=== PATIENT | female | born 1970 | race Caucasian/White ===

== ENCOUNTER 2024-03-21 13:06 | Outpatient (AMB) | payer OTHER, SELFPAY ==
--- NOTE | 2024-03-21 13:13 | MHC.PC.OV ---
Vital Signs 03/21/24 13:29 Height 5 ft 0.63 in Weight 113 lb 4 oz BMI 21.7 BP 126/70 Blood Pressure Location Rt brachial Position Sitting Respiration 14 Pulse 62 Pulse Source Pulse Oximeter Pulse Oximetry (%) 99 Oxygen Delivery Method Room Air Intake Visit Reasons: ZAID from [facility] Intake Note: New patient visit Allergies pineapple Allergy (Mild, Verified 03/21/24 13:21) hives strawberry Allergy (Unknown, Verified 03/21/24 13:13) Unknown Tobacco use date assessed: 03/21/24 Dental Screening Dental Screen Date: 03/21/24 Did you have a dental visit in the last 12 months?: Yes Did you have a dental problem in the last 6 months where you did not have access to dental care?: No Was dental information given to patient?: Patient has dentist HPI HPI Comments History of Present Illness Details The patient is a 53-year-old female with a history of headaches, cold sores presenting for follow-up Headaches: On Topamax 100 mg daily, rizatriptan 10 mg daily HSV: On valacyclovir as needed Has been having trouble sleeping. Will sleep only 3-4 hours a night for 2-3 nights then 9 hours for the next. This triggers migraines. No increased stress. ROS CONSTITUTIONAL: Denies weight loss, fever and chills. HEENT: Denies changes in vision and hearing. RESPIRATORY: Denies SOB and cough. CV: Denies palpitations and CP GI: Denies abdominal pain, nausea, vomiting and diarrhea. : Denies dysuria and urinary frequency. MSK: Denies new myalgia and joint pain. SKIN: Denies rash and pruritus. NEUROLOGICAL:see HPI PSYCHIATRIC: Denies recent changes in mood. PHYSICAL EXAM: GENERAL: Alert and oriented x 3. NAD EYES: EOMI. Anicteric. HENT: Moist mucous membranes. No scleral icterus. No cervical lymphadenopathy. LUNGS: Clear to auscultation bilaterally. CARDIOVASCULAR: Regular rate and rhythm. No murmur. No JVD. ABDOMEN: Soft, non-tender +bs EXTREMITIES: No edema. Non-tender. SKIN: No rashes or lesions. Warm. NEUROLOGIC: No focal neurological deficits. CN II-XII grossly intact PSYCHIATRIC: Cooperative. 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 1. Little interest or pleasure in doing things: not at all 2. Feeling down, depressed, or hopeless: not at all 3. Trouble falling or staying asleep, or sleeping too much: more than half the days 4. Feeling tired or having little energy: not at all 5. Poor appetite or overeating: not at all 6. Feeling bad about yourself - or that you are a failure or have let yourself or your family down: not at all 7. Trouble concentrating on things, such as reading the newspaper or watching television: not at all 8. Moving or speaking so slowly that other people could have noticed. Or the opposite - being so fidgety or restless that you have been moving around a lot more than usual: not at all 9. Thoughts that you would be better off or of hurting yourself in some way: not at all Total score: 2 Depression Screening Interpretation: Negative (neg) Depression Screening Done: Yes 93405 - PHQ-9 Billing: Yes Source: Developed by Drs. Yvon Huber, Fanny Brunner, Peter Estes and colleagues, with an educational marianne from [employer]. Thrive Questionnaire Date Thrive assessed: 03/21/24 I am a: Patient What is your living situation today?: I have a steady place to live Within the past 12 months, did the food you bought not last and you didn't have the money to get more?: Never true Within the past 12 months, did you worry whether your food would run out before you got money to buy more?: Never true Do you have trouble paying for medicines?: No Do you have trouble getting transportation to medical appointments?: No Do you have trouble paying your heating and electricity bill?: No Do you have trouble taking care of your child, family member or friend?: No Do you have trouble with day-to-day activities such as bathing, preparing meals, shopping, managing finances, etc.?: No Are you currently unemployed and looking for a job?: No Are you interested in more education?: No Please select the resources that you would like help with: None Currently or been in a relationship where the following occur: No concerns reported THRIVE Score: 0 AUDIT C Alcohol Use Questionnaire (AUDIT-C) 1. How often do you have a drink containing alcohol?: Monthly or less 2. How many drinks containing alcohol do you have on a typical day when you are drinking?: 1 or 2 3. How often do you have six or more drinks on one occasion?: Never Total Score: 1 MATTHEW-7 AMB Questionnaire MATTHEW-7 Date MATTHEW - 7 assessed: 03/21/24 Feeling nervous, anxious, or on edge: 0 = Not at all Not being able to stop or control worryin = Not at all Worrying too much about different things: 0 = Not at all Trouble relaxin = Not at all Being so restless that it is hard to sit still: 0 = Not at all Becoming easily annoyed or irritable: 0 = Not at all Feeling afraid as if something awful might happen: 0 = Not at all Total MATTHEW-7 score (0-4 normal; 5-9 mild; 10-14 moderate; 15-21 severe): 0 Source: Developed by Drs. Yvon Huber, Fanny Brunner, Peter Estes and colleagues, with an educational marianne from [employer]. MATTHEW-7 Assessment Billing MATTHEW-7 Assessment Tool: MATTHEW-7 Assessment 90630 Physical exam (Primary Care) Tobacco/Smoking Status: Tobacco use Status Tobacco use date assessed 03/21/24 03/21/24 13:20 Patient Tobacco Use Status Never used Tobacco 03/21/24 13:20 e-Cigarette/Vaping Use Never Used 03/21/24 13:20 PHQ-9: PHQ-9 Score PHQ-9: Total score 2 03/21/24 13:20 Depression Screening Interpretation: Negative (neg) Thrive Assessment: Date of Thrive Assessment Date Thrive assessed 03/21/24 03/21/24 13:20 Currently or been in a relationship where the following occur: No concerns reported Coding Level of Care Code Est Pt Level 4 (74165) Diagnoses Other headache syndrome G44.89 Headache type: other headache syndrome History of cold sores Z86.19 Additional Codes MATTHEW-7 Assessment Billing - MATTHEW-7 Assessment Tool: MATTHEW-7 Assessment 10749 ([id number]) Assessment & Plan Assessment & Plan (1) Headache: Code(s): R51.9 - Headache, unspecified Category: Medical Qualifiers: Headache type: other headache syndrome Qualified Code(s): G44.89 - Other headache syndrome Plan: stable on current medications (2) History of cold sores: Code(s): Z86.19 - Personal history of other infectious and parasitic diseases Category: Medical Plan: valtrex prn Orders: Orders TSH reflex Free T4 Today G47.00 - Insomnia, unspecified, Z13.0 - Encounter for screening for diseases of the blood and blood-forming organs and certain disorders involving the immune mechanism, Z13.228 - Encounter for screening for other metabolic disorders Complete Blood Count Auto Diff Today G47.00 - Insomnia, unspecified, Z13.0 - Encounter for screening for diseases of the blood and blood-forming organs and certain disorders involving the immune mechanism, Z13.228 - Encounter for screening for other metabolic disorders Comprehensive Met. Panel Today G47.00 - Insomnia, unspecified, Z13.0 - Encounter for screening for diseases of the blood and blood-forming organs and certain disorders involving the immune mechanism, Z13.228 - Encounter for screening for other metabolic disorders Medications: New valacyclovir (Valtrex) 2,000 mg (2 x 1 gram) PO BID 1 day PRN 20 tabs 3RF cold sore ondansetron HCl 8 mg PO Q8H 60 tabs 3RF rizatriptan 10 mg PO DAILY 90 days 30 tabs 3RF topiramate (Topamax) 100 mg PO DAILY 90 tabs 3RF zolpidem (Ambien) 5 mg PO BEDTIME PRN 30 tabs 0RF sleep
[2024-03-21 13:29] VITALS: BP 126/70; PULSE 62; RESP 14; O2SAT 99; BMI 21.7
== END 2024-03-21 13:48 | disposition home or self-care (01) ==
PROVIDERS: PCP Internal Medicine; Visit Provider Internal Medicine
DX: G44.89 Other headache syndrome (principal); Z86.19 Personal history of other infectious and parasitic diseases

== ENCOUNTER → 2024-03-21 13:06 | Outpatient (BNVA) | payer OTHER, SELFPAY | PROVIDERS: PCP Internal Medicine; Visit Provider Internal Medicine | DX: G44.89 Other headache syndrome (principal); Z86.19 Personal history of other infectious and parasitic diseases | CPT/HCPCS: 96127 ==

== ENCOUNTER 2024-03-25 10:28 | Outpatient (REF) | payer OTHER, SELFPAY ==
[2024-03-25 14:08] LABS: MANUAL DIFF FLAG NO
[2024-03-25 14:15] LABS: Basophils Percent Auto 0.6 % (0-2); Eosinophils Absolute Auto 0.3 X10*3/uL (0.0-0.4); Eosinophils Percent Auto 4.1 % (0-4); Hematocrit 42.2 % (37.0-47.0); Hemoglobin 14.4 g/dl (12.0-16.0); Imm Gran Abs Auto 0.01 X10*3/uL (0.00-0.03); Imm Gran Pct Auto 0.2 % (0.0-0.4); Lymphocytes Absolute Auto 2.6 X10*3/uL (1.2-4.9); Lymphocytes Percent Auto 38.5 % (20-40); Mean Corpuscular HGB Conc 34.1 g/dl (31.0-35.0); Mean Corpuscular Hemoglobin 32.4 pg (27.0-33.0); Mean Corpuscular Volume 94.8 fL (80.0-98.0); Mean Platelet Volume 9.6 fL (9.4-12.3); Monocytes Absolute Auto 0.3 X10*3/uL (0.1-1.2); Neutrophils Absolute Auto 3.4 x10*3/uL (2.0-8.3); Neutrophils Percent Auto 51.6 % (45-73); Platelet Count 260 X10*3/uL (160-400); Red Blood Count 4.45 X10*6/uL (4.20-5.50); Red Cell Distribution Width 12.6 % (11.0-16.0); White Blood Count 6.7 X10*3/uL (4.8-10.8)
[2024-03-25 14:50] LABS: Alanine Aminotransferase 13 U/L (0-31); Albumin Level 4.3 g/dL (3.5-5.0); Alkaline Phosphatase 69 U/L (39-117); Anion Gap 9 (12-20); Aspartate Amino Transferase 14 U/L (5-31); Bilirubin Total 0.5 mg/dL (0.0-1.0); Blood Urea Nitrogen 10 mg/dL (9-16); Calcium 9.9 mg/dL (8.4-10.2); Carbon Dioxide 28 mmol/L (22-29); Chloride 108 mmol/L (96-108); Estimated Glomerular Filt Rate > 60; Glucose Random 87 mg/dL (60-115); Potassium 4.1 mmol/L (3.3-5.1); Sodium 141 mmol/L (135-145); TSH reflex Free T4 1.45 uIU/mL (0.32-4.0); Total Protein 7.6 g/dL (6.5-8.0)
== END 2024-03-25 10:29 | disposition home or self-care (01) ==
LOC: HO.WFDLDS 10:28
PROVIDERS: Visit Provider Internal Medicine
DX: Z13.0 Encounter for screening for diseases of the blood and blood-forming organs and certain disorders involving the immune mechanism (principal); Z13.228 Encounter for screening for other metabolic disorders; G47.00 Insomnia, unspecified
CPT/HCPCS: 36415; 80053; 84443; 85025

== ENCOUNTER 2024-10-13 15:45 | Outpatient (AMB) | payer OTHER, SELFPAY ==
--- NOTE | 2024-10-13 16:01 | MHC.PC.OV ---
Vital Signs 10/13/24 16:05 Height 5 ft 0.63 in Weight 118 lb 5 oz BMI 22.6 BP 112/82 Blood Pressure Location Rt brachial Position Sitting Respiration 12 Pulse 70 Pulse Source Pulse Oximeter Pulse Oximetry (%) 97 Oxygen Delivery Method Room Air Intake Visit Reasons: cpe - see comments Intake Note: Physical. Hit nose on vacation in June, is now having nose bleeds about once a month. Copy Lathe Operator Required: No Allergies pineapple Allergy (Mild, Verified 10/13/24 16:02) hives strawberry Allergy (Unknown, Verified 10/13/24 16:02) Unknown Tobacco use date assessed: 10/13/24 Dental Screening Dental Screen Date: 03/21/24 HPI HPI Comments History of Present Illness Details The patient is a 54-year-old female with a history of headaches, cold sores presenting for physical exam Headaches: On Topamax 100 mg daily, rizatriptan 10 mg daily HSV: On valacyclovir as needed Has been having trouble sleeping. Will sleep only 3-4 hours a night for 2-3 nights then 9 hours for the next. This triggers migraines. No increased stress. She had a fall recently striking her nasal bridge. She has had intermittent bleeding episodes since. HNE-overdue breast and cervical screening ROS CONSTITUTIONAL: Denies weight loss, fever and chills. HEENT: see HPI RESPIRATORY: Denies SOB and cough. CV: Denies palpitations and CP GI: Denies abdominal pain, nausea, vomiting and diarrhea. : Denies dysuria and urinary frequency. MSK: Denies new myalgia and joint pain. SKIN: Denies rash and pruritus. NEUROLOGICAL:see HPI PSYCHIATRIC: Denies recent changes in mood. PHYSICAL EXAM: GENERAL: Alert and oriented x 3. NAD EYES: EOMI. Anicteric. HENT: Moist mucous membranes. No scleral icterus. No cervical lymphadenopathy. LUNGS: Clear to auscultation bilaterally. CARDIOVASCULAR: Regular rate and rhythm. No murmur. No JVD. ABDOMEN: Soft, non-tender +bs EXTREMITIES: No edema. Non-tender. SKIN: No rashes or lesions. Warm. NEUROLOGIC: No focal neurological deficits. CN II-XII grossly intact PSYCHIATRIC: Cooperative. Appropriate mood and affect [facility] Medical History Headache History of cold sores Surgical History H/O section Family History Father Prostate cancer Sister Ovarian cancer Social History Housing: House Alcohol intake: current Patient Tobacco Use Status: Never used Tobacco e-Cigarette/Vaping Use: Never Used Second Hand Smoke Exposure: No service: Yes Current occupational status: employed Current occupation: [email or web address] Current occupational exposures/hazards: No Cognitive needs: No Hearing needs: No Vision needs: Yes (glasses for reading ) Questionnaire PHQ-9 Over the last 2 weeks, how often have you been bothered by any of the following problems? 1. Little interest or pleasure in doing things: not at all 2. Feeling down, depressed, or hopeless: not at all 3. Trouble falling or staying asleep, or sleeping too much: more than half the days 4. Feeling tired or having little energy: several days 5. Poor appetite or overeating: not at all 6. Feeling bad about yourself - or that you are a failure or have let yourself or your family down: not at all 7. Trouble concentrating on things, such as reading the newspaper or watching television: not at all 8. Moving or speaking so slowly that other people could have noticed. Or the opposite - being so fidgety or restless that you have been moving around a lot more than usual: not at all 9. Thoughts that you would be better off or of hurting yourself in some way: not at all Total score: 3 Depression Screening Interpretation: Negative Depression Screening Done: Yes 54963 - PHQ-9 Billing: Yes Source: Developed by Drs. Yvon Huber, Fanny Brunner, Peter Estes and colleagues, with an educational marianne from [employer]. Thrive Questionnaire Date Thrive assessed: 10/13/24 I am a: Patient What is your living situation today?: I have a steady place to live Within the past 12 months, did the food you bought not last and you didn't have the money to get more?: Never true Within the past 12 months, did you worry whether your food would run out before you got money to buy more?: Never true Do you have trouble paying for medicines?: No Do you have trouble getting transportation to medical appointments?: No Do you have trouble paying your heating and electricity bill?: No Do you have trouble taking care of your child, family member or friend?: No Do you have trouble with day-to-day activities such as bathing, preparing meals, shopping, managing finances, etc.?: No Are you currently unemployed and looking for a job?: No Are you interested in more education?: No Please select the resources that you would like help with: None Currently or been in a relationship where the following occur: No concerns reported THRIVE Score: 0 AUDIT C Alcohol Use Questionnaire (AUDIT-C) 1. How often do you have a drink containing alcohol?: 2-4 times a month 2. How many drinks containing alcohol do you have on a typical day when you are drinking?: 3 or 4 3. How often do you have six or more drinks on one occasion?: Never Total Score: 3 MATTHEW-7 AMB Questionnaire MATTHEW-7 Date MATTHEW - 7 assessed: 10/13/24 Feeling nervous, anxious, or on edge: 0 = Not at all Not being able to stop or control worryin = Not at all Worrying too much about different things: 0 = Not at all Trouble relaxin = Not at all Being so restless that it is hard to sit still: 0 = Not at all Becoming easily annoyed or irritable: 0 = Not at all Feeling afraid as if something awful might happen: 0 = Not at all Total MATTHEW-7 score (0-4 normal; 5-9 mild; 10-14 moderate; 15-21 severe): 0 Source: Developed by Drs. Yvon Huber, Fanny Brunner, Peter Estes and colleagues, with an educational marianne from [employer]. MATTHEW-7 Assessment Billing MATTHEW-7 Assessment Tool: MATTHEW-7 Assessment 98758 Physical exam (Primary Care) Vital Signs: Last Vital Signs Pulse 70 10/13/24 16:05 Resp 12 10/13/24 16:05 BP 112/82 10/13/24 16:05 Pulse Ox 97 10/13/24 16:05 Oxygen Delivery Method Room Air 10/13/24 16:05 BMI result Body Mass Index 22.6 Tobacco/Smoking Status: Tobacco use Status Tobacco use date assessed 10/13/24 10/13/24 16:08 Patient Tobacco Use Status Never used Tobacco 10/13/24 16:08 e-Cigarette/Vaping Use Never Used 10/13/24 16:08 PHQ-9: PHQ-9 Score PHQ-9: Total score 3 10/17/24 14:37 Depression Screening Interpretation: Negative Thrive Assessment: Date of Thrive Assessment Date Thrive assessed 10/13/24 10/13/24 16:08 Currently or been in a relationship where the following occur: No concerns reported Coding Level of Care Code Est Pt Prev Care 40-64y(46662) Diagnoses Physical exam Z00.00 Bleeding nose R04.0 Insomnia, unspecified type G47.00 Insomnia type: unspecified Additional Codes MATTHEW-7 Assessment Billing - MATTHEW-7 Assessment Tool: MATTHEW-7 Assessment 01472 ([id number]) PHQ-9 - 40683 - PHQ-9 Billing: Yes ([id number]) Assessment & Plan Assessment & Plan (1) Physical exam: Code(s): Z00.00 - Encounter for general adult medical examination without abnormal findings Category: Medical (2) Bleeding nose: Code(s): R04.0 - Epistaxis Category: Medical (3) Insomnia: Code(s): G47.00 - Insomnia, unspecified Category: Medical Qualifiers: Insomnia type: unspecified Qualified Code(s): G47.00 - Insomnia, unspecified Plan 54 year old female for physical exam Interval history reviewed. Medications reconciled. 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
[2024-10-13 16:05] VITALS: BP 112/82; PULSE 70; RESP 12; O2SAT 97; BMI 22.6
== END 2024-10-13 16:37 | disposition home or self-care (01) ==
LOC: HO.HMCFM 15:46
PROVIDERS: PCP Internal Medicine; Visit Provider Internal Medicine
DX: Z00.00 Encounter for general adult medical examination without abnormal findings (principal); R04.0 Epistaxis; G47.00 Insomnia, unspecified

== ENCOUNTER → 2024-10-13 15:45 | Outpatient (BNVA) | payer OTHER, SELFPAY | PROVIDERS: PCP Internal Medicine; Visit Provider Internal Medicine | DX: Z00.00 Encounter for general adult medical examination without abnormal findings (principal); R04.0 Epistaxis; G47.00 Insomnia, unspecified; R51.9 Headache, unspecified; B00.9 Herpesviral infection, unspecified | CPT/HCPCS: 96127 ==